=== PATIENT | male | born 1950 | race Caucasian/White ===

== ENCOUNTER 2016-08-09 | Outpatient (CLI) | END 2016-08-09 00:49 | disposition critical access hospital (66) | CPT/HCPCS: A0425; A0427 ==

== ENCOUNTER 2016-08-09 01:07 | Emergency (ER) | END 2016-08-09 05:15 | disposition home or self-care (01) ==

== ENCOUNTER 2021-06-07 08:00 | Outpatient (CLI) | payer BC | END 2021-06-07 23:59 | disposition home or self-care (01) | LOC: LAB.N 08:00 | PROVIDERS: ATTEND Physician Assistant Medical | DX: U07.1 COVID-19 (principal) ==

== ENCOUNTER 2021-06-16 11:55 | Emergency (ER) | payer BC ==
[2021-06-16 13:15] VITALS: BP 190/92
--- NOTE | 2021-06-16 13:28 | ED Physician Documentation ---
History of Present Illness - Stated complaint Stated Complaint: C+ COUGH/CONGESTION - Chief complaint Chief Complaint: General - Additonal information Additional information: 70-year-old male presents the emergency department for evaluation of ongoing cough. He reports that he began having cough mild congestion and myalgias on 04 June. He tested positive for COVID-19 on 07 May. He denies any dyspnea or chest pain just simply states the cough is not getting better as he expected. He has no loss of taste or smell. He is requesting monoclonal antibodies today if he can receive them. He is not yet vaccinated for COVID-19 for personal reasons. No tobacco use. Denies a history of diabetes though he does have a history of hypertension. Review of Systems Constitutional: denies: Fever, Chills Eyes: reports: Reviewed and negative Nose: reports: Reviewed and negative Throat: reports: Reviewed and negative Cardiac: denies: Chest pain / pressure, Palpitations, Pedal edema, Calf pain Respiratory: reports: Cough. denies: Dyspnea, Hemoptysis, Wheezing GI: reports: Reviewed and negative : reports: Reviewed and negative Skin: reports: Reviewed and negative PD PAST MEDICAL HISTORY - Past Medical History Past Medical History: Yes Cardiovascular: Hypertension, Coronary artery disease Respiratory: None Neuro: None Endocrine/Autoimmune: None GI: GERD : None HEENT: None Psych: None Musculoskeletal: Osteoarthritis Derm: None - Past Surgical History Past Surgical History: Yes Cardiovascular: Coronary stent, Angioplasty HEENT: Tonsil/Adenoidectomy - Present Medications Home Medications: Ambulatory Orders Medication Instructions Recorded Confirmed Magnesium Citrate 100 mg PO DAILY 08/09/16 06/16/21 Oxford-3 Fatty Acids [Fish Oil] 300 mg PO DAILY 08/09/16 06/16/21 Vitamin E (Dl,Tocopheryl Acet) 1,000 unit PO DAILY 08/09/16 06/16/21 [Vitamin E] lisinopriL [Lisinopril] 40 mg PO DAILY 08/09/16 06/16/21 Albuterol Sulf [Ventolin Hfa 1 - 2 puffs INH Q4HR PRN #1 inhaler 06/16/21 Inhaler] Amlodipine Besylate [Norvasc] 2.5 mg PO DAILY 06/16/21 06/16/21 Benzonatate [Tessalon] 100 mg PO TID PRN #20 cap 06/16/21 Metoprolol Tartrate [Lopressor] 50 mg PO BID 06/16/21 06/16/21 - Allergies Allergies/Adverse Reactions: Allergies Allergy/AdvReac Type Severity Reaction Status Date / Time codeine Allergy Rash Verified 06/16/21 13:08 Latex, Natural Rubber Allergy Rash Verified 06/16/21 13:08 - Social History Does the pt smoke?: No Smoking Status: Never smoker Does the pt drink ETOH?: No Does the pt have substance abuse?: No - Immunizations Immunizations are current?: No Immunizations: Other immun not current - POLST Patient has POLST: No PD ED PE NORMAL - General General: Alert and oriented X 3, No acute distress, Well developed/nourished - HEENT HEENT: Atraumatic, Ears normal, Moist mucous membranes - Neck Neck: Supple, no meningeal sign, No adenopathy - Cardiac Cardiac: RRR, No murmur - Respiratory Respiratory: No respiratory distress, Clear bilaterally - Abdomen Abdomen: Normal bowel sounds, Soft, Non tender - Back Back: No CVA TTP, No spinal TTP - Derm Derm: Warm and dry - Extremities Extremities: No deformity - Neuro Neuro: Alert and oriented X 3 Results - Vitals Vitals: Vital Signs - 24 hr 06/16/21 13:08 Temperature 37.3 C Heart Rate 79 Respiratory 20 Rate Blood Pressure 190/92 H O2 Saturation 99 Oxygen O2 Source Room air - Rads (name of study) CXR Radiology: Final report received (No acute cardiopulmonary process) PD MEDICAL DECISION MAKING - ED course Complexity details: reviewed results, re-evaluated patient, d/w patient ED course: 70-year-old male presents emergency department for evaluation of a persistent cough. He began developing symptoms of COVID-19 on 04 June and tested positive on 07 June. He is requesting Mab therapy but due to more than 10 days of symptoms he is outside the Mab therapy window. Reassuringly has unremarkable cardiopulmonary auscultation. No hypoxia on room air no labored breathing or respiratory distress. Chest x-ray shows no acute focal opacities. I discussed that with the patient that he was not a candidate for Mab therapy. I will send a prescription for albuterol as well as Tessalon Perles to the pharmacy. Otherwise emergent return precautions discussed. Departure - Departure Disposition: 01 Home, Self Care Clinical Impression: COVID-19, Cough Condition: Stable Record reviewed to determine appropriate education?: Yes Prescriptions: Albuterol Sulf [Ventolin Hfa Inhaler] 1 - 2 puffs INH Q4HR PRN #1 inhaler PRN Reason: Shortness Of Air/Wheezing Benzonatate [Tessalon] 100 mg PO TID PRN #20 cap PRN Reason: Cough Comments: Jl you are seen today for cough in the setting of known COVID-19 infection. Reassuringly your chest x-ray is normal. There is no findings of pneumonia or Covid pneumonia. When we listen to your lungs up with a stethoscope you sound very clear. Your oxygen levels are normal. Due to the duration of your symptoms you are not a candidate for monoclonal antibodies. I have sent a prescription for Tessalon Perles as well as albuterol and inhaler which should help with your cough to the [facility]. If at any point you feel that your symptoms are worsening, You develop fevers, have bloody sputum severe chest pain or shortness of air then please return to the ER for a second evaluation
--- NOTE | 2021-06-16 14:12 | XRAY Report ---
PROCEDURE: Chest 1 View X-Ray INDICATIONS: chest pain TECHNIQUE: One view of the chest was acquired. COMPARISON: Chest x-ray 08/09/2016 FINDINGS: Surgical changes and devices: None. Lungs and pleura: No pleural effusions or pneumothorax. Lungs are clear. Mediastinum: Mediastinal contours appear normal. Heart size is normal. Bones and chest wall: No suspicious bony lesions. Overlying soft tissues appear unremarkable. IMPRESSION: No acute pulmonary process. Reviewed by: Kerline Connell MD on 06/16/2021 2:11 PM PST Approved by: Kerline Connell MD on 06/16/2021 2:11 PM PST Station ID: [id number]
== END 2021-06-16 15:03 | disposition home or self-care (01) ==
LOC: ED 11:55
DX: U07.1 COVID-19 (principal); R05.9 Cough, unspecified; I10 Essential (primary) hypertension; I25.10 Atherosclerotic heart disease of native coronary artery without angina pectoris; Z95.5 Presence of coronary angioplasty implant and graft; Z79.899 Other long term (current) drug therapy
CPT/HCPCS: 80053; 83690; 85025; 99283; 99284